=== PATIENT | male | born 1965 | race American Indian/Alaskan Native ===

== ENCOUNTER 2018-06-24 20:56 | Inpatient (IN) | payer BC, MEDICARE ==
[2018-06-24] MEDS ORDERED: ASPIRIN PO ONE (21:25)
[2018-06-24] MEDS ORDERED: REGLAN ONE (21:40)
[2018-06-24] MEDS ORDERED: REGLAN IV ONE (21:42)
[2018-06-24 21:57] LABS: Basophils # (Auto) 0.1 K/mm3 (0.0-0.1); Basophils % (Auto) 0.5 % (0.0-1.8); Eosinophils # (Auto) 0.2 K/mm3 (0.0-0.4); Eosinophils % (Auto) 1.6 % (0.0-4.3); Hematocrit 36.3 % (35.5-45.6); Hemoglobin 12.3 gm/dl (11.8-15.2); Lymphocytes # (Auto) 1.6 K/mm3 (1.2-5.4); Lymphocytes % (Auto) 14.5 % (13.4-35.0); Mean Corpuscular HGB Conc 34 % (32-34); Mean Corpuscular Volume 92 fl (84-94); Monocytes # (Auto) 0.9 K/mm3 (0.0-0.8); Monocytes % (Auto) 7.9 % (0.0-7.3); Platelet Count 169 K/mm3 (140-440); Red Blood Count 3.94 M/mm3 (3.65-5.03); Red Cell Distribution Width 14.3 % (13.2-15.2)
[2018-06-24 22:32] LABS: Alanine Aminotransferase 16 units/L (7-56); Albumin 3.9 g/dL (3.9-5); BUN/Creatinine Ratio 14; Blood Urea Nitrogen 14 mg/dL (9-20); Calcium 9.3 mg/dL (8.4-10.2); Hemolysis Index 58
[2018-06-24 23:59] LABS: Bilirubin,Urine NEG (Negative); Blood,Urine NEG (Negative); Color,Urine Amber (Yellow); Mucus,Urine 3+ /HPF
--- NOTE | 2018-06-25 01:14 | Emergency Department Report ---
ED Chest Pain HPI - General Chief Complaint: Chest Pain Stated Complaint: CHEST PAINS Time Seen by Provider: 06/25/18 01:13 Source: patient Mode of arrival: Ambulatory Limitations: No Limitations - History of Present Illness Initial Comments: Patient c/o chest pain MD Complaint: chest pain -: Sudden, days(s) (2) Onset: during rest Pain Location: substernal Pain Radiation: none Severity: moderate Severity scale (0 -10): 6 Quality: heaviness, pressure Consistency: constant Improves With: nothing Worsens With: nothing re: nausea, vomting, dyspnea Treatments Prior to Arrival: none Aspirin use within the Past 7 Days: (0) No - Related Data On Oral Contraceptives: No Home Medications Medication Instructions Recorded Confirmed Last Taken Carvedilol [Coreg] 25 mg PO DAILY 06/25/18 06/25/18 Unknown hydroCHLOROthiazide [HCTZ] 25 mg PO QDAY 06/25/18 06/25/18 Unknown Previous Rx's Medication Instructions Recorded Last Taken Type Aspirin [Aspirin BABY CHEW TAB] 81 mg PO QDAY #30 tab 12/25/14 Unknown Rx Lisinopril [Zestril TAB] 20 mg PO BID #60 tablet 12/25/14 Unknown Rx Allergies Allergy/AdvReac Type Severity Reaction Status Date / Time No Known Allergies Allergy Verified 12/08/14 17:23 Heart Score - HEART Score History: Moderately suspicious EKG: Non-specific Age: 45-65 Risk factors: 1-2 risk factors Troponin: < normal limit HEART Score: 4 - Critical Actions Critical Actions: 4-6 pts:12-16.6% risk of adverse cardiac event. Should be admitted ED Review of Systems ROS: Stated complaint: CHEST PAINS Other details as noted in HPI Comment: All other systems reviewed and negative Constitutional: denies: chills, fever Eyes: denies: eye pain, eye discharge, vision change ENT: denies: ear pain, throat pain Respiratory: shortness of breath, SOB at rest. denies: cough, wheezing Cardiovascular: chest pain. denies: palpitations Endocrine: no symptoms reported Gastrointestinal: denies: abdominal pain, nausea, diarrhea Genitourinary: denies: urgency, dysuria Musculoskeletal: denies: back pain, joint swelling, arthralgia Skin: denies: rash, lesions Neurological: denies: headache, weakness, paresthesias Psychiatric: denies: anxiety, depression Hematological/Lymphatic: denies: easy bleeding, easy bruising ED Past Medical Hx - Past Medical History Previous Medical History?: Yes Hx Hypertension: Yes Hx CVA: Yes Hx Congestive Heart Failure: No Hx Diabetes: No Hx Asthma: No Hx COPD: No Hx HIV: No Additional medical history: HIGH CHOLESTEROL - Surgical History Past Surgical History?: Yes Hx Pacemaker: No Additional Surgical History: L knee. gastric sleeve - Social History Smoking Status: Never Smoker Substance Use Type: None - Medications Home Medications: Home Medications Medication Instructions Recorded Confirmed Last Taken Type Aspirin [Aspirin BABY CHEW TAB] 81 mg PO QDAY #30 tab 12/25/14 06/25/18 Unknown Rx Lisinopril [Zestril TAB] 20 mg PO BID #60 tablet 12/25/14 06/25/18 Unknown Rx Carvedilol [Coreg] 25 mg PO DAILY 06/25/18 06/25/18 Unknown History hydroCHLOROthiazide [HCTZ] 25 mg PO QDAY 06/25/18 06/25/18 Unknown History ED Physical Exam - General Limitations: No Limitations General appearance: alert, in no apparent distress, obese - Head Head exam: Present: atraumatic, normocephalic - Eye Eye exam: Present: normal appearance, PERRL, EOMI Pupils: Present: normal accommodation - ENT ENT exam: Present: normal exam, normal orophraynx, mucous membranes moist - Neck Neck exam: Present: normal inspection, full ROM. Absent: tenderness - Respiratory Respiratory exam: Present: normal lung sounds bilaterally. Absent: respiratory distress, wheezes, rales, rhonchi - Cardiovascular Cardiovascular Exam: Present: regular rate, normal rhythm, normal heart sounds. Absent: systolic murmur, diastolic murmur, rubs, gallop - GI/Abdominal GI/Abdominal exam: Present: soft, tenderness, normal bowel sounds. Absent: distended, guarding, rebound, rigid - Rectal Rectal exam: Present: deferred - Extremities Exam Extremities exam: Present: normal inspection, full ROM, normal capillary refill - Back Exam Back exam: Present: normal inspection, full ROM - Neurological Exam Neurological exam: Present: alert, oriented X3, CN II-XII intact - Psychiatric Psychiatric exam: Present: normal affect, normal mood - Skin Skin exam: Present: warm, dry, intact, normal color. Absent: rash ED Course Vital Signs 06/24/18 06/25/18 06/25/18 21:08 01:20 02:00 Temperature 99.6 F 98.5 F Pulse Rate 99 H 94 H 88 Respiratory 18 13 16 Rate Blood Pressure 153/89 137/68 Blood Pressure 149/85 [Left] O2 Sat by Pulse 95 98 Oximetry 06/25/18 06/25/18 03:00 04:00 Temperature Pulse Rate 87 84 Respiratory 17 14 Rate Blood Pressure 128/75 128/75 Blood Pressure [Left] O2 Sat by Pulse 100 Oximetry - Consultations Consultation #1: 06/25/18 05:[address] Lei Gonzalez who did a gastric sleeve surgery on the patient on 05/31/2018. He recommend starting patient on Heparin drip (PE protocol) even though patient has surgery on 05/31/2018. I will go ahead and start patient on Heparin drip per Dr Lei Gonzalez recommendation. Consultation #2: 06/25/18 05:06 Dr Garber to admit patient. HOLLY score - Holly Score Age > 65: (0) No Aspirin use within the Past 7 Days: (0) No 3 or more CAD Risk Factors: (1) Yes 2 or more Angina events in past 24 hrs: (0) No Known CAD with more than 50% Stenosis: (0) No Elevated Cardiac Markers: (0) No ST Deviation Greater than 0.5mm: (0) No HOLLY Score: 1 ED Medical Decision Making - Lab Data Result diagrams: 06/24/18 21:29 06/24/18 21:29 Lab Results 06/24/18 06/24/18 06/24/18 Range/Units 21:29 21:29 21:29 WBC 10.8 (4.5-11.0) K/mm3 RBC 3.94 (3.65-5.03) M/mm3 Hgb 12.3 (11.8-15.2) gm/dl Hct 36.3 (35.5-45.6) % MCV 92 (84-94) fl MCH 31 (28-32) pg MCHC 34 (32-34) % RDW 14.3 (13.2-15.2) % Plt Count 169 (140-440) K/mm3 Lymph % (Auto) 14.5 (13.4-35.0) % [place] % (Auto) 7.9 H (0.0-7.3) % Eos % (Auto) 1.6 (0.0-4.3) % Baso % (Auto) 0.5 (0.0-1.8) % Lymph # 1.6 (1.2-5.4) K/mm3 [place] # 0.9 H (0.0-0.8) K/mm3 Eos # 0.2 (0.0-0.4) K/mm3 Baso # 0.1 (0.0-0.1) K/mm3 Seg Neutrophils % 75.5 H (40.0-70.0) % Seg Neutrophils # 8.1 H (1.8-7.7) K/mm3 PT (12.2-14.9) Sec. INR (0.87-1.13) APTT (24.2-36.6) Sec. Sodium 150 H (137-145) mmol/L Potassium 3.9 (3.6-5.0) mmol/L Chloride 108.5 H (98-107) mmol/L Carbon Dioxide 24 (22-30) mmol/L Anion Gap 21 mmol/L BUN 14 (9-20) mg/dL Creatinine 1.0 (0.8-1.5) mg/dL Estimated GFR > 60 ml/min BUN/Creatinine Ratio 14 % Glucose 111 H (75-100) mg/dL Calcium 9.3 (8.4-10.2) mg/dL Total Bilirubin 0.70 (0.1-1.2) mg/dL AST 25 (5-40) units/L ALT 16 (7-56) units/L Alkaline Phosphatase 78 (35-129) units/L Troponin T < 0.010 (0.00-0.029) ng/mL Total Protein 8.2 (6.3-8.2) g/dL Albumin 3.9 (3.9-5) g/dL Albumin/Globulin Ratio 0.9 % Lipase 56 (13-60) units/L Urine Color (Yellow) Urine Turbidity (Clear) Urine pH (5.0-7.0) Ur Specific [place] (1.003-1.030) Urine Protein (Negative) mg/dL Urine Glucose (UA) (Negative) mg/dL Urine Ketones (Negative) mg/dL Urine Blood (Negative) Urine Nitrite (Negative) Urine Bilirubin (Negative) Urine Urobilinogen (<2.0) mg/dL Ur Leukocyte Esterase (Negative) Urine WBC (Auto) (0.0-6.0) /HPF Urine RBC (Auto) (0.0-6.0) /HPF U Epithel Cells (Auto) (0-13.0) /HPF Urine Mucus /HPF 06/24/18 06/25/18 06/25/18 Range/Units 23:36 00:35 02:10 WBC (4.5-11.0) K/mm3 RBC (3.65-5.03) M/mm3 Hgb (11.8-15.2) gm/dl Hct (35.5-45.6) % MCV (84-94) fl MCH (28-32) pg MCHC (32-34) % RDW (13.2-15.2) % Plt Count (140-440) K/mm3 Lymph % (Auto) (13.4-35.0) % [place] % (Auto) (0.0-7.3) % Eos % (Auto) (0.0-4.3) % Baso % (Auto) (0.0-1.8) % Lymph # (1.2-5.4) K/mm3 [place] # (0.0-0.8) K/mm3 Eos # (0.0-0.4) K/mm3 Baso # (0.0-0.1) K/mm3 Seg Neutrophils % (40.0-70.0) % Seg Neutrophils # (1.8-7.7) K/mm3 PT 15.7 H (12.2-14.9) Sec. INR 1.21 H (0.87-1.13) APTT 27.6 (24.2-36.6) Sec. Sodium (137-145) mmol/L Potassium (3.6-5.0) mmol/L Chloride (98-107) mmol/L Carbon Dioxide (22-30) mmol/L Anion Gap mmol/L BUN (9-20) mg/dL Creatinine (0.8-1.5) mg/dL Estimated GFR ml/min BUN/Creatinine Ratio % Glucose (75-100) mg/dL Calcium (8.4-10.2) mg/dL Total Bilirubin (0.1-1.2) mg/dL AST (5-40) units/L ALT (7-56) units/L Alkaline Phosphatase (35-129) units/L Troponin T < 0.010 (0.00-0.029) ng/mL Total Protein (6.3-8.2) g/dL Albumin (3.9-5) g/dL Albumin/Globulin Ratio % Lipase (13-60) units/L Urine Color [place] (Yellow) Urine Turbidity Slightly-cloudy (Clear) Urine pH 5.0 (5.0-7.0) Ur Specific [place] 1.030 (1.003-1.030) Urine Protein 100 mg/dl (Negative) mg/dL Urine Glucose (UA) Neg (Negative) mg/dL Urine Ketones 80 (Negative) mg/dL Urine Blood Neg (Negative) Urine Nitrite Neg (Negative) Urine Bilirubin Neg (Negative) Urine Urobilinogen 2.0 (<2.0) mg/dL Ur Leukocyte Esterase Sm (Negative) Urine WBC (Auto) 23.0 H (0.0-6.0) /HPF Urine RBC (Auto) 4.0 (0.0-6.0) /HPF U Epithel Cells (Auto) 3.0 (0-13.0) /HPF Urine Mucus 3+ /HPF - EKG Data -: EKG Interpreted by Id EKG shows normal: sinus rhythm Rate: normal (84) - EKG Data When compared to previous EKG there are: previous EKG unavailable Interpretation: nonspecific ST-T wave [facility] 06/25/18 02:48 Prolonged QT, No STEMI. - Radiology Data Radiology results: report reviewed, image reviewed CTA chest showed extensive bilateral pulmonary embolism. - Medical Decision Making Bilateral Pulmonary embolism. S/P Gastric Sleeve Surgery. Intractable Nausea and Vomiting. Critical Care Time: Yes Critical care time in (mins) excluding proc time.: 65 Critical care attestation.: If time is entered above; I have spent that time in minutes in the direct care of this critically ill patient, excluding procedure time. ED Disposition Clinical Impression: Shortness of breath, Morbid obesity Pulmonary embolism Qualifiers: Pulmonary embolism type: unspecified Chronicity: acute Acute cor pulmonale presence: without acute cor pulmonale Qualified Code(s): I26.99 - Other pulmonary embolism without acute cor pulmonale Chest pain Qualifiers: Chest pain type: unspecified Qualified Code(s): R07.9 - Chest pain, unspecified Nausea and vomiting Qualifiers: Vomiting type: unspecified Vomiting Intractability: intractable Qualified Code(s): R11.2 - Nausea with vomiting, unspecified Abdominal pain Qualifiers: Abdominal location: generalized Qualified Code(s): R10.84 - Generalized abdomin al pain Intractable nausea and vomiting Qualifiers: Vomiting type: unspecified Qualified Code(s): R11.2 - Nausea with vomiting, unspecified Disposition: DC-09 OP ADMIT IP TO THIS HOSP Is pt being admited?: Yes Does the pt Need Aspirin: Yes Condition: Stable Time of Disposition: 04:36
[2018-06-25] MEDS ORDERED: ZOFRAN IV ONE (01:54)
[2018-06-25] MEDS ORDERED: MORPHINE IV ONE (01:54)
[2018-06-25] MEDS ORDERED: ASPIRIN ONE (02:03)
[2018-06-25 02:33] LABS: INR 1.21 (0.87-1.13); Partial Thromboplastin Time 27.6 Sec. (24.2-36.6)
--- NOTE | 2018-06-25 04:02 | Cat Scan Report ---
FINAL REPORT EXAM: CT ANGIO CHEST HISTORY: chest pain TECHNIQUE: A CT angiogram was performed following the intravenous injection of 100 cc of Omnipaque 3 50. Rotational, sagittal and coronal MIP reconstructions were reviewed. FINDINGS: There are extensive partially occlusive emboli within the primary and secondary arterial branches of both lungs. There is no evidence of right heart strain or pulmonary infarct. The lungs otherwise are clear. Pleural fluid is not seen. The heart size is normal. Pericardial fluid is not seen. The thorac ic aorta is normal in caliber. Adenopathy is not identified. There is a small hiatal hernia at the GE junction. There is been gastric sleeve surgery in the upper abdomen. The adrenal glands appear tia l. The skeletal structures reveal multilevel disc degeneration in the dorsal spine. At the thoracic i nlet the thyroid gland appears normal. IMPRESSION: Extensive bilateral partially occlusive emboli involving the primary and secondary arterial branches of both lungs. No evidence of right heart strain, vascular congestion, or pulmonary infarct. Small hiatal hernia. Status post gastric sleeve surgery in the upper abdomen. The pulmonary emboli findings were discussed with Dr. Randolph at 4:01 a.m. on 06/25/2018.
[2018-06-25] MEDS ORDERED: NACL 0.9% 1000 ML 1,000 ML IV ONE ×2 (04:05→05:07)
[2018-06-25] MEDS ORDERED: HEPARIN 10,000 UNITS/10 ML IV ONE (04:32)
--- NOTE | 2018-06-25 04:34 | Cat Scan Report ---
FINAL REPORT EXAM: CT ANGIO ABDOMEN PELVIS HISTORY: chest pain TECHNIQUE: CT images are acquired through the Abdomen and Pelvis in angiographic phase following int ravenous administration of contrast. Transaxial, coronal and sagittal reformations with maximal inten sity projection are provided. PRIORS: CT chest angiogram of the same date FINDINGS: Partially visualized intrathoracic contents are remarkable for pulmonary emboli, which are seen to be tter advantage on CT chest angiogram of the same date. The liver, gallbladder, pancreas, spleen, and adrenal glands are unremarkable. Kidneys show no worrisome lesions, hydronephrosis, or calculi. Urinary bladder is unremarkable. Patient status post sleeve gastrectomy. Small and large bowel are normal in caliber. Appendix is norm al. No free air, free fluid, or lymphadenopathy identified. Aorta is normal in course and caliber. No aortic wall irregularity or periaortic stranding or edema. Superficial soft tissues are without acute finding. No acute or aggressive appearing skeletal finding s. IMPRESSION: No acute findings in the abdomen or pelvis.
[2018-06-25] MEDS ORDERED: HEPARIN/ 0.45% NACL-25,000 UNIT/500 ML 25,000 UNIT/500 ML BAG ONE (05:05)
[2018-06-25] MEDS ORDERED: HEPARIN 10,000 UNITS/10 ML ONE (05:05)
[2018-06-25] MEDS: HEPARIN/ 0.45% NACL-25,000 UNIT/500 ML 25,000 UNIT/500 ML BAG IV SCH ×2 (05:12→22:37)
[2018-06-25 05:51] LABS: Hematocrit 35.7 % (35.5-45.6); Hemoglobin 11.5 gm/dl (11.8-15.2)
[2018-06-25 06:02] LABS: INR 1.42 (0.87-1.13)
[2018-06-25] MEDS ORDERED: MORPHINE IV PRN (06:04)
[2018-06-25] MEDS ORDERED: TYLENOL PO PRN (06:05)
[2018-06-25 06:15] LABS: Partial Thromboplastin Time 143.8 Sec. (24.2-36.6)
--- NOTE | 2018-06-25 08:03 | History and Physical Report ---
CHIEF COMPLAINT: Chest pain. OTHER COMPLAINT: Includes shortness of breath. HISTORY OF PRESENTING ILLNESS: The patient is a 53-year-old male who had gastric bypass surgery done on 05/31/2018 and started having chest pain with difficulty in breathing, was going on for few days and the patient denies history of nausea or vomiting and has been having dysphagia with shortness of breath. There is no history of fever and no history of cough. The patient presented for evaluation. PAST MEDICAL HISTORY: Pertinent for hypertension, cerebrovascular accident, hypercholesterolemia. PAST SURGICAL HISTORY: Pertinent for left knee surgery and recent gastric bypass surgery involving gastric sleeve surgery. FAMILY HISTORY: Noncontributory. SOCIAL HISTORY: The patient does not smoke, does not drink alcohol, and does not use illicit drugs. MEDICATIONS: The patient is on aspirin 81 mg daily, lisinopril 20 mg by mouth twice daily, Coreg 25 mg by mouth daily, Thiazide 25 mg by mouth daily. ALLERGIES: There are no known drug allergies. REVIEW OF SYSTEMS: CONSTITUTIONAL: There is no fever, no chills, no diaphoresis. HEENT: There is no headache or sore throat. CARDIOVASCULAR SYSTEM: He has chest pain, but no orthopnea. RESPIRATORY SYSTEM: There is shortness of breath, but no cough. GASTROINTESTINAL SYSTEM: There is no abdominal pain, no diarrhea or constipation. NEUROLOGICAL SYSTEM: There is no numbness, no dizziness, and no altered mental status. MUSCULOSKELETAL SYSTEM: There is no joint pain or swelling. DERMATOLOGICAL SYSTEM: There is no skin rash or itching. GENITOURINARY SYSTEM: There is no dysuria, hematuria, or flank pain. Rest of system review is normal. PHYSICAL EXAMINATION: GENERAL: At the time of exam, the patient was found to be alert, oriented x 3, and not in acute distress. VITAL SIGNS: At the initial time of presentation show temperature of 99.6 degrees Fahrenheit, pulse of 99, respirations 18, blood pressure 158/89, O2 sat of 95% on room air. HEENT: Shows pupils to be equal, round, reactive to light and accommodation. Extraocular muscles are intact. NECK: Supple with no JVD or carotid bruit. CARDIOVASCULAR SYSTEM: Shows normal first and second heart sounds with no gallops or murmurs. RESPIRATORY SYSTEM: Shows good air entry on both sides of the lung with no abnormal breath sounds. GASTROINTESTINAL SYSTEM: Shows abdomen to be full, soft, nontender with no organomegaly or rigidity. NEUROLOGICAL SYSTEM Shows no focal deficit. MUSCULOSKELETAL SYSTEM: Shows no joint swelling or tenderness. DERMATOLOGICAL SYSTEM: Shows no skin rash. GENITOURINARY SYSTEM: Showing no costovertebral angle tenderness. PERTINENT LABORATORY DATA: The patient had CBC done with normal white count, normal hemoglobin, and normal hematocrit with CBC differential showing elevated monocyte count of 7.9% and elevated segmented neutrophil count of 75.5%. The patient's coagulation studies were unremarkable with high INR of 1.2 with slightly elevated PT of 15.7. The patient's chemistry showed elevated sodium level of 150 with elevated chloride level of 108.5 and normal potassium level. The patient's magnesium level was high with a value of 2.4. Urinalysis shows small urine leukocyte esterase with elevated urine WBCs of 23. IMAGING STUDIES: The patient had CT angiogram of the abdomen done that was unremarkable, but his CT angiogram of the chest shows extensive bilateral partially occlusive emboli involving the primary and secondary arterial branches of both lungs. DIAGNOSES: 1. Bilateral pulmonary embolism. 2. Urinary tract infection. PLAN OF ACTION: 1. The patient will be admitted to [facility]. 2. The patient will continue IV heparin, which was okayed by the surgeon, Dr. Gonzalez, who did the gastric sleeve surgery. 3. The patient will be on Coumadin 5 mg by mouth daily, to be dosed by pharmacy. 4. The patient will have PT/INR done on 06/26/2018. 5. The patient will be on IV morphine 2 mg every 4 hours as needed for pain and the patient will be on IV Zofran 4 mg every 8 hours for nausea and vomiting. 6. The patient will be on Tylenol 650 mg by mouth every 4 hours as needed for fever and headache. 7. The patient will be on his home medication as shown in the medication reconciliation section. 8. The patient will be on oxygen by nasal cannula at 4 liters per minute. 9. The patient's diet will be 2 g sodium diet. JOB# [id number] OCN/NTS
[2018-06-25] MEDS: ROCEPHIN/NS 1 GM/50 ML 1 GM/50 ML BAG IV SCH (09:23)
[2018-06-25] MEDS: ZESTRIL PO SCH ×3 (09:23→22:36)
[2018-06-25] MEDS: HCTZ PO SCH ×2 (09:24→12:36)
[2018-06-25] MEDS: COREG PO SCH ×2 (09:24→12:35)
[2018-06-25] MEDS ORDERED: MYLICON PO PRN (10:36)
[2018-06-25] MEDS ORDERED: APRESOLINE IV PRN (10:36)
[2018-06-25 12:33] LABS: Creatine Kinase MB 1.8 ng/mL (0.0-4.0)
[2018-06-25] MEDS: LACTATED RINGERS 1,000 ML IV SCH ×2 (12:37→22:35)
[2018-06-25] MEDS: COUMADIN PO SCH ×2 (17:59→18:00)
--- NOTE | 2018-06-25 18:43 | Progress Note ---
History Interval history: Patient was seen and evaluated this morning. Patient admitted earlier this morning for the management of bilateral PE. Labs, imaging and H&P reviewed. Continue management per H&P. Hospitalist Physical - Constitutional Vitals: Temp Pulse Resp BP Pulse Ox 98.3 F 72 15 143/76 100 06/25/18 12:00 06/25/18 11:00 06/25/18 11:00 06/25/18 11:00 06/25/18 11:00 Results - Labs CBC & Chem 7: 06/25/18 05:33 06/24/18 21:29 Labs: Laboratory Last Values WBC 10.8 K/mm3 (4.5-11.0) 06/24/18 21: RBC 3.94 M/mm3 (3.65-5.03) 06/24/18 21: Hgb 11.5 gm/dl (11.8-15.2) L 06/25/18 05:33 Hct 35.7 % (35.5-45.6) 06/25/18 05:33 MCV 92 fl (84-94) 06/24/18 21: MCH 31 pg (28-32) 06/24/18 21: MCHC 34 % (32-34) 06/24/18 21: RDW 14.3 % (13.2-15.2) 06/24/18 21: Plt Count 148 K/mm3 (140-440) 06/25/18 05:33 Lymph % (Auto) 14.5 % (13.4-35.0) 06/24/18 21: [place] % (Auto) 7.9 % (0.0-7.3) H 06/24/18 21: Eos % (Auto) 1.6 % (0.0-4.3) 06/24/18 21: Baso % (Auto) 0.5 % (0.0-1.8) 06/24/18: Lymph # 1.6 K/mm3 (1.2-5.4) 06/24/18 21: [place] # 0.9 K/mm3 (0.0-0.8) H 06/24/18 21: Eos # 0.2 K/mm3 (0.0-0.4) 06/24/18 21:29 Baso # 0.1 K/mm3 (0.0-0.1) 06/24/18 21:29 Seg Neutrophils % 75.5 % (40.0-70.0) H 06/24/18 21:29 Seg Neutrophils # 8.1 K/mm3 (1.8-7.7) H 06/24/18 21:29 PT 17.8 Sec. (12.2-14.9) H 06/25/18 05:33 INR 1.42 (0.87-1.13) H 06/25/18 05:33 APTT 143.8 Sec. (24.2-36.6) H* 06/25/18 05:33 Heparin Anti-Xa Level 0.81 U.I./ml (0.3-0.7) H 06/25/18 11:25 Sodium 150 mmol/L (137-145) H 06/24/18 21:29 Potassium 3.9 mmol/L (3.6-5.0) 06/24/18 21:29 Chloride 108.5 mmol/L (98-107) H 06/24/18 21:29 Carbon Dioxide 24 mmol/L (22-30) 06/24/18 21:29 Anion Gap 21 mmol/L 06/24/18 21:29 BUN 14 mg/dL (9-20) 06/24/18 21:29 Creatinine 1.0 mg/dL (0.8-1.5) 06/24/18 21:29 Estimated GFR > 60 ml/min 06/24/18 21:29 BUN/Creatinine Ratio 14 % 06/24/18 21:29 Glucose 111 mg/dL (75-100) H 06/24/18 21:29 Calcium 9.3 mg/dL (8.4-10.2) 06/24/18 21:29 Magnesium 2.40 mg/dL (1.7-2.3) H 06/25/18 03:58 Total Bilirubin 0.70 mg/dL (0.1-1.2) 06/24/18 21:29 AST 25 units/L (5-40) 06/24/18 21:29 ALT 16 units/L (7-56) 06/24/18 21:29 Alkaline Phosphatase 78 units/L (35-129) 06/24/18 21:29 Total Creatine Kinase 249 units/L (55-170) H 06/25/18 11:25 CK-MB (CK-2) 1.8 ng/mL (0.0-4.0) 06/25/18 11:25 CK-MB (CK-2) Rel Index 0.7 (0-4) 06/25/18 11:25 Troponin T < 0.010 ng/mL (0.00-0.029) 06/25/18 11:25 NT-Pro-B Natriuret Pep 22.34 pg/mL (0-900) 06/25/18 02:10 Total Protein 8.2 g/dL (6.3-8.2) 06/24/18 21:29 Albumin 3.9 g/dL (3.9-5) 06/24/18 21:29 Albumin/Globulin Ratio 0.9 % 06/24/18 21:29 Lipase 56 units/L (13-60) 06/24/18 21:29 Urine Color [place] (Yellow) 06/24/18 23:36 Urine Turbidity Slightly-cloudy (Clear) 06/24/18 23:36 Urine pH 5.0 (5.0-7.0) 06/24/18 23:36 Ur Specific [place] 1.030 (1.003-1.030) 06/24/18 23:36 Urine Protein 100 mg/dl mg/dL (Negative) 06/24/18 23:36 Urine Glucose (UA) Neg mg/dL (Negative) 06/24/18 23:36 Urine Ketones 80 mg/dL (Negative) 06/24/18 23:36 Urine Blood Neg (Negative) 06/24/18 23:36 Urine Nitrite Neg (Negative) 06/24/18 23:36 Urine Bilirubin Neg (Negative) 06/24/18 23:36 Urine Urobilinogen 2.0 mg/dL (<2.0) 06/24/18 23:36 Ur Leukocyte Esterase Sm (Negative) 06/24/18 23:36 Urine WBC (Auto) 23.0 /HPF (0.0-6.0) H 06/24/18 23:36 Urine RBC (Auto) 4.0 /HPF (0.0-6.0) 06/24/18 23:36 U Epithel Cells (Auto) 3.0 /HPF (0-13.0) 06/24/18 23:36 Urine Mucus 3+ /HPF 06/24/18 23:36 Nutrition/Malnutrition Assess - Dietary Evaluation Nutrition/Malnutrition Findings: Nutrition Notes Start: 06/25/18 13:57 Freq: Status: Active Protocol: Document 06/25/18 13:57 RM (Rec: 06/25/18 14:01 RM [id number]) Nutrition Notes Need for Assessment generated from: Education Initial or Follow up Assessment Current Diagnosis Hypertension Stroke Other Pertinent Diagnosis UTI, Bilat PE Subjective/Other Information Pt screened for Coumadin/Vit K diet education. Reviewed Coumadin/Vit K diet education. Gave handout. #1 Nutrition Diagnosis Food and nutrition-related knowledge deficit Etiology lack of prior education As Evidenced by Signs and Symptoms no prior knowledge of need for food and nutrition recommendations Nutrition Intervention Teaching Recipient Patient Learning Readiness Good Teaching Methods Discussion Handout Response to Teaching Verbalize understanding Education Handouts Provided Vitamin K and Medications Barriers to Learning No Barriers RD phone number provided Yes Patient aware of follow up options Yes Goal #1 Adhere to diet Revisit per MD consult or patient Sign Off request:
[2018-06-25 22:29] LABS: Creatine Kinase MB 1.6 ng/mL (0.0-4.0)
--- NOTE | 2018-06-26 08:29 | Progress Note ---
Assessment and Plan S/P Sleeve gastrectomy 3 weeks ago, now with nausea, vomiting and pulmonary emboli. Will start IVF'S, reglan and CT scan with oral contrast to r/o sleeve obstruction. Hospitalist to handle P.E. protocol. Subjective Date of service: 06/25/18 Patient Reports: Positive: nausea Narrative: Awake ,alert and in no pain. Reports nausea and difficulty swallowing but no chest pain, or shortness of breath. He reports that he just can keep certain things down. He's ok with water, but other fluids he brings back up. Objective Vital Signs - 12hr 06/25/18 06/25/18 21:05 22:36 Pulse Rate 80 Blood Pressure 122/60 O2 Sat by Pulse 100 Oximetry - General physical appearance well developed, well nourished, no distress, no pain - Eyes PERRL, normal occular movement - ENT normal pinna, normal mucosa, no hearing loss, no congestion - Neck no masses, trachea midline, no lymphadectomy - Respiratory normal expansion, normal respiratory effort - Abdomen soft, bowel sounds normal Hernia: none - Integumentary no rash, no growths - Neurologic normal coordination, normal sensation - Musculoskeletal normal gait, normal posture - Psychiatric oriented to time, oriented to person, oriented to place, speech is normal, memory intact - Labs 06/25/18 05:33 06/24/18 21:29 - Imaging CT scan - abdomen: pending CT scan - chest: other (CT of chest shows pulmonary embolism and pt started on heparin protocol.) CT scan - pelvis: pending
[2018-06-26 08:33] LABS: Basophils # (Auto) 0.1 K/mm3 (0.0-0.1); Basophils % (Auto) 0.7 % (0.0-1.8); Eosinophils # (Auto) 0.3 K/mm3 (0.0-0.4); Hematocrit 34.9 % (35.5-45.6); Hemoglobin 11.4 gm/dl (11.8-15.2); Lymphocytes # (Auto) 1.3 K/mm3 (1.2-5.4); Lymphocytes % (Auto) 17.1 % (13.4-35.0); Mean Corpuscular HGB Conc 33 % (32-34); Mean Corpuscular Volume 93 fl (84-94); Monocytes # (Auto) 0.7 K/mm3 (0.0-0.8); Platelet Count 152 K/mm3 (140-440); Red Blood Count 3.78 M/mm3 (3.65-5.03); Red Cell Distribution Width 14.1 % (13.2-15.2)
[2018-06-26 08:34] LABS: INR 1.2 (0.87-1.13)
[2018-06-26 09:33] LABS: BUN/Creatinine Ratio 11; Blood Urea Nitrogen 11 mg/dL (9-20); Calcium 8.9 mg/dL (8.4-10.2); Hemolysis Index 4
[2018-06-26 10:22] LABS: Basophils % (Auto) 0.5 % (0.0-1.8); Eosinophils # (Auto) 0.3 K/mm3 (0.0-0.4); Eosinophils % (Auto) 3.9 % (0.0-4.3); Hematocrit 34.1 % (35.5-45.6); Lymphocytes # (Auto) 1.3 K/mm3 (1.2-5.4); Lymphocytes % (Auto) 18.3 % (13.4-35.0); Mean Corpuscular HGB Conc 32 % (32-34); Mean Corpuscular Volume 93 fl (84-94); Monocytes # (Auto) 0.7 K/mm3 (0.0-0.8); Monocytes % (Auto) 9.4 % (0.0-7.3); Platelet Count 156 K/mm3 (140-440); Red Blood Count 3.68 M/mm3 (3.65-5.03); Red Cell Distribution Width 13.9 % (13.2-15.2)
[2018-06-26] MEDS: ROCEPHIN/NS 1 GM/50 ML 1 GM/50 ML BAG IV SCH (10:30)
[2018-06-26] MEDS: ZESTRIL PO SCH ×2 (10:32→23:37)
[2018-06-26] MEDS: HCTZ PO SCH (10:32)
[2018-06-26] MEDS: COREG PO SCH (10:32)
[2018-06-26] MEDS: LACTATED RINGERS 1,000 ML IV SCH (10:35)
[2018-06-26 11:56] LABS: Alanine Aminotransferase 14 units/L (7-56); Albumin 3.1 g/dL (3.9-5); BUN/Creatinine Ratio 12; Blood Urea Nitrogen 11 mg/dL (9-20); Calcium 8.7 mg/dL (8.4-10.2); Hemolysis Index 35
--- NOTE | 2018-06-26 13:14 | Progress Note ---
Assessment and Plan Will review abdominal CT with contrast to see if there is any abnormality of the stomach. If this is normal, we will have to continue to advance his diet slowly. If this is abnormal or if he is unable to complete the study, a upper endoscopy may be required to try and define the anatomy and the problem. Subjective Date of service: 06/26/18 Patient Reports: Positive: no new complaints, feels better, bowel movement, afebrile Narrative: Patient reports that he is able to take down water, but everything else makes him nauseated and he regurgitates. He is currently trying to take in the gastrographin for the CT scan as the prior study was without p.o. contrast. He says it is going down but very slowly. Objective Vital Signs - 12hr 06/26/18 06/26/18 06/26/18 03:51 04:01 04:11 Temperature Pulse Rate 76 80 78 Respiratory 15 11 L 12 Rate Blood Pressure 114/55 144/71 144/71 O2 Sat by Pulse 96 96 98 Oximetry 06/26/18 06/26/18 06/26/18 04:21 05:23 05:31 Temperature Pulse Rate 82 103 H 83 Respiratory 12 22 13 Rate Blood Pressure 144/71 144/71 139/68 O2 Sat by Pulse 97 98 97 Oximetry 06/26/18 06/26/18 06/26/18 05:41 05:51 06:00 Temperature Pulse Rate 82 79 81 Respiratory 13 15 12 Rate Blood Pressure 144/71 139/68 129/68 O2 Sat by Pulse 96 96 95 Oximetry 06/26/18 06/26/18 06/26/18 06:11 06:21 06:31 Temperature Pulse Rate 80 75 74 Respiratory 15 12 11 L Rate Blood Pressure 129/68 129/68 129/68 O2 Sat by Pulse 98 99 99 Oximetry 06/26/18 06/26/18 06/26/18 06:41 06:51 07:00 Temperature Pulse Rate 69 68 80 Respiratory 11 L 11 L 12 Rate Blood Pressure 129/68 129/68 132/57 O2 Sat by Pulse 100 100 100 Oximetry 06/26/18 06/26/18 06/26/18 07:11 07:21 07:31 Temperature Pulse Rate 68 79 83 Respiratory 11 L 12 16 Rate Blood Pressure 132/57 132/57 132/57 O2 Sat by Pulse 100 100 100 Oximetry 06/26/18 06/26/18 06/26/18 07:40 07:50 08:00 Temperature Pulse Rate 75 85 81 Respiratory 12 15 15 Rate Blood Pressure 132/57 132/57 140/65 O2 Sat by Pulse 100 99 96 Oximetry 06/26/18 06/26/18 06/26/18 08:11 08:21 08:31 Temperature Pulse Rate 76 82 91 H Respiratory 14 14 13 Rate Blood Pressure 140/65 140/65 140/65 O2 Sat by Pulse 99 99 Oximetry 06/26/18 06/26/18 06/26/18 08:41 08:51 08:59 Temperature 97.5 F L Pulse Rate 86 83 Respiratory 23 18 Rate Blood Pressure 140/65 140/65 O2 Sat by Pulse 97 Oximetry 06/26/18 06/26/18 06/26/18 09:00 09:11 09:21 Temperature Pulse Rate 82 83 81 Respiratory 15 16 12 Rate Blood Pressure 144/72 144/72 140/65 O2 Sat by Pulse 94 98 Oximetry 06/26/18 06/26/18 06/26/18 09:31 09:41 09:51 Temperature Pulse Rate 77 76 84 Respiratory 14 13 15 Rate Blood Pressure 140/65 140/65 144/72 O2 Sat by Pulse 97 96 100 Oximetry 06/26/18 06/26/18 06/26/18 10:00 10:11 10:21 Temperature Pulse Rate 81 88 80 Respiratory 14 16 17 Rate Blood Pressure 148/63 148/63 148/63 O2 Sat by Pulse 100 99 100 Oximetry 06/26/18 06/26/18 06/26/18 10:31 10:41 10:51 Temperature Pulse Rate 79 79 79 Respiratory 17 15 16 Rate Blood Pressure 148/63 148/63 148/63 O2 Sat by Pulse 99 98 Oximetry 06/26/18 06/26/18 06/26/18 11:00 11:11 11:21 Temperature Pulse Rate 76 74 75 Respiratory 16 16 15 Rate Blood Pressure 162/87 162/87 162/87 O2 Sat by Pulse 96 99 99 Oximetry 06/26/18 06/26/18 06/26/18 11:31 11:41 11:51 Temperature Pulse Rate 76 78 75 Respiratory 17 15 14 Rate Blood Pressure 162/87 162/87 162/87 O2 Sat by Pulse 100 100 99 Oximetry 06/26/18 06/26/18 06/26/18 12:01 12:11 12:21 Temperature Pulse Rate 75 81 75 Respiratory 18 16 13 Rate Blood Pressure 158/94 158/94 158/94 O2 Sat by Pulse 98 98 Oximetry 06/26/18 06/26/18 06/26/18 12:31 12:41 12:51 Temperature Pulse Rate 71 82 70 Respiratory 18 12 16 Rate Blood Pressure 158/94 158/94 158/94 O2 Sat by Pulse 97 97 97 Oximetry - General physical appearance no distress, no pain - Respiratory normal expansion, normal respiratory effort - Abdomen soft, bowel sounds normal - Labs 06/26/18 09:57 06/26/18 09:57 Diabetes panel 06/26/18 06/26/18 Range/Units 07:46 09:57 Sodium 149 H 150 H (137-145) mmol/L Potassium 3.6 3.5 L (3.6-5.0) mmol/L Chloride 108.8 H 109.7 H (98-107) mmol/L Carbon Dioxide 27 23 (22-30) mmol/L BUN 11 11 (9-20) mg/dL Creatinine 1.0 0.9 (0.8-1.5) mg/dL Glucose 92 91 (75-100) mg/dL Calcium 8.9 8.7 (8.4-10.2) mg/dL AST 21 (5-40) units/L ALT 14 (7-56) units/L Alkaline Phosphatase 66 (35-129) units/L Total Protein 7.0 (6.3-8.2) g/dL Albumin 3.1 L (3.9-5) g/dL Calcium panel 06/26/18 06/26/18 Range/Units 07:46 09:57 Calcium 8.9 8.7 (8.4-10.2) mg/dL Albumin 3.1 L (3.9-5) g/dL Pituitary panel 06/26/18 06/26/18 Range/Units 07:46 09:57 Sodium 149 H 150 H (137-145) mmol/L Potassium 3.6 3.5 L (3.6-5.0) mmol/L Chloride 108.8 H 109.7 H (98-107) mmol/L Carbon Dioxide 27 23 (22-30) mmol/L BUN 11 11 (9-20) mg/dL Creatinine 1.0 0.9 (0.8-1.5) mg/dL Glucose 92 91 (75-100) mg/dL Calcium 8.9 8.7 (8.4-10.2) mg/dL Adrenal panel 06/26/18 06/26/18 Range/Units 07:46 09:57 Sodium 149 H 150 H (137-145) mmol/L Potassium 3.6 3.5 L (3.6-5.0) mmol/L Chloride 108.8 H 109.7 H (98-107) mmol/L Carbon Dioxide 27 23 (22-30) mmol/L BUN 11 11 (9-20) mg/dL Creatinine 1.0 0.9 (0.8-1.5) mg/dL Glucose 92 91 (75-100) mg/dL Calcium 8.9 8.7 (8.4-10.2) mg/dL Total Bilirubin 0.60 (0.1-1.2) mg/dL AST 21 (5-40) units/L ALT 14 (7-56) units/L Alkaline Phosphatase 66 (35-129) units/L Total Protein 7.0 (6.3-8.2) g/dL Albumin 3.1 L (3.9-5) g/dL - Imaging CT scan - abdomen: image reviewed CT scan - chest: image reviewed
[2018-06-26] MEDS: COUMADIN PO SCH (17:37)
--- NOTE | 2018-06-26 18:38 | Progress Note ---
Assessment and Plan Assessment and plan: 53-year-old male with medical history significant for status post gastric sleeve surgery was admitted yesterday as a management of bilateral PE after he was presented for shortness of breath. Bilateral PE - CTA is positive for PE - Patient is on heparin drip, will transition to by mouth ginny has a total discharge Status post gastric sleeve surgery - Evaluated by bariatric surgery Disposition - Pending clearance from bariatric surgery or discharge History Interval history: Patient was seen and evaluated this morning. Patient didn't have any complaints Hospitalist Physical - Physical exam Narrative exam: Not in cardiopulmonary distress. The patient is obese. Vital signs as documented. Head exam is unremarkable. No scleral icterus . Neck is without jugular venous distension, thyromegaly, or carotid bruits. Lungs are clear to auscultation. Cardiac exam reveals regular rate and Rhythm. First and second heart sounds normal. No murmurs, rubs or gallops. Abdominal exam reveals normal bowel sounds, no masses, no organomegaly and no aortic enlargement. Extremities are nonedematous and both femoral and pedal pulses are normal. 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 No focal weakness. - Constitutional Vitals: Temp Pulse Resp BP Pulse Ox 98.3 F 70 16 158/94 97 06/26/18 16:46 06/26/18 12:51 06/26/18 12:51 06/26/18 12:51 06/26/18 12:51 Results - Labs CBC & Chem 7: 06/26/18 09:57 06/26/18 09:57 Labs: Laboratory Last Values WBC 7.4 K/mm3 (4.5-11.0) 06/26/18 09:57 RBC 3.68 M/mm3 (3.65-5.03) 06/26/18 09:57 Hgb 11.0 gm/dl (11.8-15.2) L 06/26/18 09:57 Hct 34.1 % (35.5-45.6) L 06/26/18 09:57 MCV 93 fl (84-94) 06/26/18 09:57 MCH 30 pg (28-32) 06/26/18 09:57 MCHC 32 % (32-34) 06/26/18 09:57 RDW 13.9 % (13.2-15.2) 06/26/18 09:57 Plt Count 156 K/mm3 (140-440) 06/26/18 09:57 Lymph % (Auto) 18.3 % (13.4-35.0) 06/26/18 09:57 [place] % (Auto) 9.4 % (0.0-7.3) H 06/26/18 09:57 Eos % (Auto) 3.9 % (0.0-4.3) 06/26/18 09:57 Baso % (Auto) 0.5 % (0.0-1.8) 06/26/18 09:57 Lymph # 1.3 K/mm3 (1.2-5.4) 06/26/18 09:57 [place] # 0.7 K/mm3 (0.0-0.8) 06/26/18 09:57 Eos # 0.3 K/mm3 (0.0-0.4) 06/26/18 09:57 Baso # 0.0 K/mm3 (0.0-0.1) 06/26/18 09:57 Seg Neutrophils % 67.9 % (40.0-70.0) 06/26/18 09:57 Seg Neutrophils # 5.0 K/mm3 (1.8-7.7) 06/26/18 09:57 PT 15.6 Sec. (12.2-14.9) H 06/26/18 07:46 INR 1.20 (0.87-1.13) H 06/26/18 07:46 APTT 143.8 Sec. (24.2-36.6) H* 06/25/18 05:33 Heparin Anti-Xa Level 0.45 U.I./ml (0.3-0.7) 06/26/18 07:46 Sodium 150 mmol/L (137-145) H 06/26/18 09:57 Potassium 3.5 mmol/L (3.6-5.0) L 06/26/18 09:57 Chloride 109.7 mmol/L (98-107) H 06/26/18 09:57 Carbon Dioxide 23 mmol/L (22-30) 06/26/18 09:57 Anion Gap 21 mmol/L 06/26/18 09:57 BUN 11 mg/dL (9-20) 06/26/18 09:57 Creatinine 0.9 mg/dL (0.8-1.5) 06/26/18 09:57 Estimated GFR > 60 ml/min 06/26/18 09:57 BUN/Creatinine Ratio 12 % 06/26/18 09:57 Glucose 91 mg/dL (75-100) 06/26/18 09:57 Calcium 8.7 mg/dL (8.4-10.2) 06/26/18 09:57 Magnesium 2.40 mg/dL (1.7-2.3) H 06/25/18 03:58 Total Bilirubin 0.60 mg/dL (0.1-1.2) 06/26/18 09:57 AST 21 units/L (5-40) 06/26/18 09:57 ALT 14 units/L (7-56) 06/26/18 09:57 Alkaline Phosphatase 66 units/L (35-129) 06/26/18 09:57 Total Creatine Kinase 227 units/L (55-170) H 06/25/18 21:32 CK-MB (CK-2) 1.6 ng/mL (0.0-4.0) 06/25/18 21:32 CK-MB (CK-2) Rel Index 0.7 (0-4) 06/25/18 21:32 Troponin T < 0.010 ng/mL (0.00-0.029) 06/25/18 21:32 NT-Pro-B Natriuret Pep 22.34 pg/mL (0-900) 06/25/18 02:10 Total Protein 7.0 g/dL (6.3-8.2) 06/26/18 09:57 Albumin 3.1 g/dL (3.9-5) L 06/26/18 09:57 Albumin/Globulin Ratio 0.8 % 06/26/18 09:57 Lipase 56 units/L (13-60) 06/24/18 21:29 Urine Color [place] (Yellow) 06/24/18 23:36 Urine Turbidity Slightly-cloudy (Clear) 06/24/18 23:36 Urine pH 5.0 (5.0-7.0) 06/24/18 23:36 Ur Specific [place] 1.030 (1.003-1.030) 06/24/18 23:36 Urine Protein 100 mg/dl mg/dL (Negative) 06/24/18 23:36 Urine Glucose (UA) Neg mg/dL (Negative) 06/24/18 23:36 Urine Ketones 80 mg/dL (Negative) 06/24/18 23:36 Urine Blood Neg (Negative) 06/24/18 23:36 Urine Nitrite Neg (Negative) 06/24/18 23:36 Urine Bilirubin Neg (Negative) 06/24/18 23:36 Urine Urobilinogen 2.0 mg/dL (<2.0) 06/24/18 23:36 Ur Leukocyte Esterase Sm (Negative) 06/24/18 23:36 Urine WBC (Auto) 23.0 /HPF (0.0-6.0) H 06/24/18 23:36 Urine RBC (Auto) 4.0 /HPF (0.0-6.0) 06/24/18 23:36 U Epithel Cells (Auto) 3.0 /HPF (0-13.0) 06/24/18 23:36 Urine Mucus 3+ /HPF 06/24/18 23:36 Nutrition/Malnutrition Assess - Dietary Evaluation Nutrition/Malnutrition Findings: Nutrition Notes Start: 06/25/18 13:57 Freq: Status: Active Protocol: Document 06/25/18 13:57 RM (Rec: 06/25/18 14:01 RM [id number]) Nutrition Notes Need for Assessment generated from: Education Initial or Follow up Assessment Current Diagnosis Hypertension Stroke Other Pertinent Diagnosis UTI, Bilat PE Subjective/Other Information Pt screened for Coumadin/Vit K diet education. Reviewed Coumadin/Vit K diet education. Gave handout. #1 Nutrition Diagnosis Food and nutrition-related knowledge deficit Etiology lack of prior education As Evidenced by Signs and Symptoms no prior knowledge of need for food and nutrition recommendations Nutrition Intervention Teaching Recipient Patient Learning Readiness Good Teaching Methods Discussion Handout Response to Teaching Verbalize understanding Education Handouts Provided Vitamin K and Medications Barriers to Learning No Barriers RD phone number provided Yes Patient aware of follow up options Yes Goal #1 Adhere to diet Revisit per MD consult or patient Sign Off request:
[2018-06-26] MEDS: ZOFRAN IV PRN (21:00)
[2018-06-26] MEDS: HEPARIN/ 0.45% NACL-25,000 UNIT/500 ML 25,000 UNIT/500 ML BAG IV SCH (23:35)
[2018-06-27 04:45] LABS: Hematocrit 33.2 % (35.5-45.6); Hemoglobin 10.9 gm/dl (11.8-15.2)
[2018-06-27 04:53] LABS: INR 1.21 (0.87-1.13)
[2018-06-27] MEDS: LACTATED RINGERS 1,000 ML IV SCH ×3 (05:53→23:32)
[2018-06-27] MEDS: ZESTRIL PO SCH ×2 (10:30→22:19)
[2018-06-27] MEDS: HCTZ PO SCH (10:30)
[2018-06-27] MEDS: COREG PO SCH (10:30)
[2018-06-27 11:38] LABS: Basophils % (Auto) 0.7 % (0.0-1.8); Eosinophils # (Auto) 0.2 K/mm3 (0.0-0.4); Eosinophils % (Auto) 3.7 % (0.0-4.3); Hemoglobin 11.2 gm/dl (11.8-15.2); Lymphocytes # (Auto) 1.2 K/mm3 (1.2-5.4); Lymphocytes % (Auto) 19.7 % (13.4-35.0); Mean Corpuscular HGB Conc 33 % (32-34); Mean Corpuscular Volume 92 fl (84-94); Monocytes # (Auto) 0.6 K/mm3 (0.0-0.8); Monocytes % (Auto) 9.3 % (0.0-7.3); Platelet Count 163 K/mm3 (140-440); Red Blood Count 3.71 M/mm3 (3.65-5.03)
[2018-06-27 12:01] LABS: Alanine Aminotransferase 19 units/L (7-56); Albumin 3.5 g/dL (3.9-5); BUN/Creatinine Ratio 9; Blood Urea Nitrogen 8 mg/dL (9-20); Hemolysis Index 25
[2018-06-27] MEDS: ROCEPHIN/NS 1 GM/50 ML 1 GM/50 ML BAG IV SCH (12:08)
--- NOTE | 2018-06-27 16:29 | Progress Note ---
Assessment and Plan Assessment and plan: 53-year-old male with medical history significant for status post gastric sleeve surgery was admitted yesterday as a management of bilateral PE after he was presented for shortness of breath. Bilateral PE - CTA is positive for PE -Patient was on heparin drip and now transitioned to an increase Status post gastric sleeve surgery - Evaluated by bariatric surgery Disposition - Pending clearance from bariatric surgery or discharge History Interval history: Patient was seen and evaluated this morning. Patient didn't have any complaints. Hospitalist Physical - Physical exam Narrative exam: Not in cardiopulmonary distress. The patient is obese. Vital signs as documented. Head exam is unremarkable. No scleral icterus . Neck is without jugular venous distension, thyromegaly, or carotid bruits. Lungs are clear to auscultation. Cardiac exam reveals regular rate and Rhythm. First and second heart sounds normal. No murmurs, rubs or gallops. Abdominal exam reveals normal bowel sounds, no masses, no organomegaly and no aortic enlargement. Extremities are nonedematous and both femoral and pedal pulses are normal. 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 No focal weakness. - Constitutional Vitals: Temp Pulse Resp BP Pulse Ox 98.3 F 75 16 156/81 97 06/27/18 16:00 06/27/18 16:00 06/27/18 16:00 06/27/18 16:00 06/27/18 16:00 Results - Labs CBC & Chem 7: 06/27/18 11:16 06/27/18 11:16 Labs: Laboratory Last Values WBC 6.2 K/mm3 (4.5-11.0) 06/27/18 11:16 RBC 3.71 M/mm3 (3.65-5.03) 06/27/18 11:16 Hgb 11.2 gm/dl (11.8-15.2) L 06/27/18 11:16 Hct 34.0 % (35.5-45.6) L 06/27/18 11:16 MCV 92 fl (84-94) 06/27/18 11:16 MCH 30 pg (28-32) 06/27/18 11:16 MCHC 33 % (32-34) 06/27/18 11:16 RDW 14.0 % (13.2-15.2) 06/27/18 11:16 Plt Count 163 K/mm3 (140-440) 06/27/18 11:16 Lymph % (Auto) 19.7 % (13.4-35.0) 06/27/18 11:16 [place] % (Auto) 9.3 % (0.0-7.3) H 06/27/18 11:16 Eos % (Auto) 3.7 % (0.0-4.3) 06/27/18 11:16 Baso % (Auto) 0.7 % (0.0-1.8) 06/27/18 11:16 Lymph # 1.2 K/mm3 (1.2-5.4) 06/27/18 11:16 [place] # 0.6 K/mm3 (0.0-0.8) 06/27/18 11:16 Eos # 0.2 K/mm3 (0.0-0.4) 06/27/18 11:16 Baso # 0.0 K/mm3 (0.0-0.1) 06/27/18 11:16 Seg Neutrophils % 66.6 % (40.0-70.0) 06/27/18 11:16 Seg Neutrophils # 4.1 K/mm3 (1.8-7.7) 06/27/18 11:16 PT 15.7 Sec. (12.2-14.9) H 06/27/18 04:26 INR 1.21 (0.87-1.13) H 06/27/18 04:26 APTT 143.8 Sec. (24.2-36.6) H* 06/25/18 05:33 Heparin Anti-Xa Level 0.48 U.I./ml (0.3-0.7) 06/27/18 04:26 Sodium 146 mmol/L (137-145) H 06/27/18 11:16 Potassium 3.1 mmol/L (3.6-5.0) L 06/27/18 11:16 Chloride 104.0 mmol/L (98-107) 06/27/18 11:16 Carbon Dioxide 25 mmol/L (22-30) 06/27/18 11:16 Anion Gap 20 mmol/L 06/27/18 11:16 BUN 8 mg/dL (9-20) L 06/27/18 11:16 Creatinine 0.9 mg/dL (0.8-1.5) 06/27/18 11:16 Estimated GFR > 60 ml/min 06/27/18 11:16 BUN/Creatinine Ratio 9 % 06/27/18 11:16 Glucose 80 mg/dL (75-100) 06/27/18 11:16 Calcium 9.0 mg/dL (8.4-10.2) 06/27/18 11:16 Magnesium 2.40 mg/dL (1.7-2.3) H 06/25/18 03:58 Total Bilirubin 0.70 mg/dL (0.1-1.2) 06/27/18 11:16 AST 33 units/L (5-40) 06/27/18 11:16 ALT 19 units/L (7-56) 06/27/18 11:16 Alkaline Phosphatase 67 units/L (35-129) 06/27/18 11:16 Total Creatine Kinase 227 units/L (55-170) H 06/25/18 21:32 CK-MB (CK-2) 1.6 ng/mL (0.0-4.0) 06/25/18 21:32 CK-MB (CK-2) Rel Index 0.7 (0-4) 06/25/18 21:32 Troponin T < 0.010 ng/mL (0.00-0.029) 06/25/18 21:32 NT-Pro-B Natriuret Pep 22.34 pg/mL (0-900) 06/25/18 02:10 Total Protein 7.3 g/dL (6.3-8.2) 06/27/18 11:16 Albumin 3.5 g/dL (3.9-5) L 06/27/18 11:16 Albumin/Globulin Ratio 0.9 % 06/27/18 11:16 Lipase 56 units/L (13-60) 06/24/18 21:29 Urine Color [place] (Yellow) 06/24/18 23:36 Urine Turbidity Slightly-cloudy (Clear) 06/24/18 23:36 Urine pH 5.0 (5.0-7.0) 06/24/18 23:36 Ur Specific [place] 1.030 (1.003-1.030) 06/24/18 23:36 Urine Protein 100 mg/dl mg/dL (Negative) 06/24/18 23:36 Urine Glucose (UA) Neg mg/dL (Negative) 06/24/18 23:36 Urine Ketones 80 mg/dL (Negative) 06/24/18 23:36 Urine Blood Neg (Negative) 06/24/18 23:36 Urine Nitrite Neg (Negative) 06/24/18 23:36 Urine Bilirubin Neg (Negative) 06/24/18 23:36 Urine Urobilinogen 2.0 mg/dL (<2.0) 06/24/18 23:36 Ur Leukocyte Esterase Sm (Negative) 06/24/18 23:36 Urine WBC (Auto) 23.0 /HPF (0.0-6.0) H 06/24/18 23:36 Urine RBC (Auto) 4.0 /HPF (0.0-6.0) 06/24/18 23:36 U Epithel Cells (Auto) 3.0 /HPF (0-13.0) 06/24/18 23:36 Urine Mucus 3+ /HPF 06/24/18 23:36 Nutrition/Malnutrition Assess - Dietary Evaluation Nutrition/Malnutrition Findings: Nutrition Notes Start: 06/25/18 13:57 Freq: Status: Active Protocol: Document 06/25/18 13:57 RM (Rec: 06/25/18 14:01 RM [id number]) Nutrition Notes Need for Assessment generated from: Education Initial or Follow up Assessment Current Diagnosis Hypertension Stroke Other Pertinent Diagnosis UTI, Bilat PE Subjective/Other Information Pt screened for Coumadin/Vit K diet education. Reviewed Coumadin/Vit K diet education. Gave handout. #1 Nutrition Diagnosis Food and nutrition-related knowledge deficit Etiology lack of prior education As Evidenced by Signs and Symptoms no prior knowledge of need for food and nutrition recommendations Nutrition Intervention Teaching Recipient Patient Learning Readiness Good Teaching Methods Discussion Handout Response to Teaching Verbalize understanding Education Handouts Provided Vitamin K and Medications Barriers to Learning No Barriers RD phone number provided Yes Patient aware of follow up options Yes Goal #1 Adhere to diet Revisit per MD consult or patient Sign Off request:
[2018-06-27] MEDS: ZOFRAN IV PRN (16:47)
[2018-06-27] MEDS: ELIQUIS PO SCH ×2 (16:47→22:19)
--- NOTE | 2018-06-27 19:56 | Progress Note ---
Assessment and Plan Will check results of CT, however at this point since he is tolerating liquids, if there is no obstruction on CT, we can manage his surgical issues on an outpatient basis. Await medicine to achieve goal INR on anticoagulants and then can probably be discharged. Subjective Patient Reports: Positive: no new complaints, feels better, tolerating liquids well Narrative: Unable still to tolerate foods of substance. Objective Vital Signs - 12hr 06/27/18 06/27/18 06/27/18 08:00 08:07 08:43 Temperature 97.3 F L Pulse Rate 79 Respiratory 16 12 Rate Blood Pressure 132/62 O2 Sat by Pulse 99 95 98 Oximetry 06/27/18 06/27/18 06/27/18 09:01 10:00 10:25 Temperature Pulse Rate 76 78 86 Respiratory 16 13 Rate Blood Pressure 149/75 149/75 O2 Sat by Pulse Oximetry 06/27/18 06/27/18 06/27/18 10:30 11:01 12:00 Temperature Pulse Rate 79 82 Respiratory 12 17 Rate Blood Pressure 151/75 149/75 O2 Sat by Pulse 98 98 Oximetry 06/27/18 06/27/18 06/27/18 12:01 12:09 13:00 Temperature 98.5 F Pulse Rate 75 67 Respiratory 12 14 Rate Blood Pressure 149/75 140/78 O2 Sat by Pulse 96 93 Oximetry 06/27/18 06/27/18 06/27/18 14:01 15:00 16:00 Temperature 98.3 F Pulse Rate 72 81 75 Respiratory 16 19 20 Rate Blood Pressure 148/83 156/77 156/81 O2 Sat by Pulse 88 99 95 Oximetry - General physical appearance no distress, no pain - Abdomen soft, bowel sounds normal - Labs 06/27/18 11:16 06/27/18 11:16 Diabetes panel 06/27/18 Range/Units 11:16 Sodium 146 H (137-145) mmol/L Potassium 3.1 L (3.6-5.0) mmol/L Chloride 104.0 (98-107) mmol/L Carbon Dioxide 25 (22-30) mmol/L BUN 8 L (9-20) mg/dL Creatinine 0.9 (0.8-1.5) mg/dL Glucose 80 (75-100) mg/dL Calcium 9.0 (8.4-10.2) mg/dL AST 33 (5-40) units/L ALT 19 (7-56) units/L Alkaline Phosphatase 67 (35-129) units/L Total Protein 7.3 (6.3-8.2) g/dL Albumin 3.5 L (3.9-5) g/dL Calcium panel 06/27/18 Range/Units 11:16 Calcium 9.0 (8.4-10.2) mg/dL Albumin 3.5 L (3.9-5) g/dL Pituitary panel 06/27/18 Range/Units 11:16 Sodium 146 H (137-145) mmol/L Potassium 3.1 L (3.6-5.0) mmol/L Chloride 104.0 (98-107) mmol/L Carbon Dioxide 25 (22-30) mmol/L BUN 8 L (9-20) mg/dL Creatinine 0.9 (0.8-1.5) mg/dL Glucose 80 (75-100) mg/dL Calcium 9.0 (8.4-10.2) mg/dL Adrenal panel 06/27/18 Range/Units 11:16 Sodium 146 H (137-145) mmol/L Potassium 3.1 L (3.6-5.0) mmol/L Chloride 104.0 (98-107) mmol/L Carbon Dioxide 25 (22-30) mmol/L BUN 8 L (9-20) mg/dL Creatinine 0.9 (0.8-1.5) mg/dL Glucose 80 (75-100) mg/dL Calcium 9.0 (8.4-10.2) mg/dL Total Bilirubin 0.70 (0.1-1.2) mg/dL AST 33 (5-40) units/L ALT 19 (7-56) units/L Alkaline Phosphatase 67 (35-129) units/L Total Protein 7.3 (6.3-8.2) g/dL Albumin 3.5 L (3.9-5) g/dL
[2018-06-27] MEDS: REGLAN IV PRN (21:54)
[2018-06-28 06:36] LABS: INR 1.48 (0.87-1.13)
[2018-06-28] MEDS: ZOFRAN IV PRN ×2 (08:40→13:21)
[2018-06-28] MEDS: LACTATED RINGERS 1,000 ML IV SCH (08:40)
[2018-06-28] MEDS: HCTZ PO SCH (09:30)
[2018-06-28] MEDS: COREG PO SCH (09:30)
[2018-06-28] MEDS: ZESTRIL PO SCH (09:31)
[2018-06-28] MEDS: ELIQUIS PO SCH (10:10)
[2018-06-28] MEDS: REGLAN IV PRN (10:16)
--- NOTE | 2018-06-28 11:10 | Discharge Summary ---
Providers - Providers Date of Admission: 06/25/18 04:36 Attending physician: ALICIA MARQUEZ MD 06/25/18 04:14 Consult to Physician [CONS] Routine Comment: Dr. Randolph spoke with Dr. Gonzalez @ [phone] Consulting Provider: MAGDI GONZALEZ Physician Instructions: Reason For Exam: Abdominal pain, Nausea and vomiting. s/p surgery. 06/28/18 10:20 Physical Therapy Evaluation and Treat [CONS] Routine Comment: Reason For Exam: Needs to walk today Primary care physician: NIGHT MONITOR Hospitalization Reason for admission: Bilateral PE, history of bariatric surgery Condition: Stable Pertinent studies: CT abdomen and pelvis - No acute findings Hospital course: 53-year-old male with medical history significant for status post gastric sleeve surgery was admitted for the management of bilateral PE after he was presented for shortness of breath. Patent was admitted and treated with heparin drip and later transitioned to PO eliquis. Patient's SOB is getting better. Patient had nausea and vomiting and Dr Gonzalez saw the patient and CT abdomen and pelvis was done and no abnormality was identified. Nausea and vomiting subsided. Cleared for discharge by bariatric surgery and will follow him as an O/P. Patient was given a prescription for eliquis and reglan. Disposition: DC-01 TO HOME OR SELFCARE Time spent for discharge: 32 minutes - Discharge Diagnoses (1) Intractable nausea and vomiting Status: Acute Qualifiers: Vomiting type: unspecified Qualified Code(s): R11.2 - Nausea with vomiting, unspecified (2) Pulmonary embolism Status: Acute Qualifiers: Pulmonary embolism type: unspecified Chronicity: acute Acute cor pulmonale presence: without acute cor pulmonale Qualified Code(s): I26.99 - Other pulmonary embolism without acute cor pulmonale Core Measure Documentation - Palliative Care Palliative Care/ Comfort Measures: Not Applicable - Core Measures Any of the following diagnoses?: none - VTE Discharge Requirements Deep Vein Thrombosis/Pulmonary Embolism Present on Admission: Yes Has pt received <5 days of overlap therapy or INR<2.0: Yes Anticoagulant overlap therapy prescribed at discharge: No Contraindication No Overlap Therapy order at DC: Not Indicated Exam - Physical Exam Narrative exam: Not in cardiopulmonary distress. The patient is obese. Vital signs as documented. Head exam is unremarkable. No scleral icterus . Neck is without jugular venous distension, thyromegaly, or carotid bruits. Lungs are clear to auscultation. Cardiac exam reveals regular rate and Rhythm. First and second heart sounds normal. No murmurs, rubs or gallops. Abdominal exam reveals normal bowel sounds, no masses, no organomegaly and no aortic enlargement. Extremities are nonedematous and both femoral and pedal pulses are normal. 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 No focal weakness. - Constitutional Vitals: Temp Pulse Resp BP Pulse Ox 98.2 F 84 16 144/82 95 06/28/18 08:00 06/28/18 09:31 06/28/18 04:00 06/28/18 09:31 06/28/18 04:00 Plan Activity: no restrictions Weight Bearing Status: Full Weight Bearing Diet: low fat Follow up with: PRIMARY CARE, [Primary Care Provider] - 3-5 Days Forms: Warfarin Discharge Instruction Prescriptions: Apixaban [Eliquis] 5 mg PO Q12HR #74 tablet Metoclopramide [Reglan] 10 mg PO TID PRN #30 tab PRN Reason: Nausea
[2018-06-28] MEDS ORDERED: K-DUR PO ONE (12:00)
--- NOTE | 2018-06-28 15:17 | Progress Note ---
Assessment and Plan Assessment and plan: 53-year-old male with medical history significant for status post gastric sleeve surgery was admitted yesterday as a management of bilateral PE after he was presented for shortness of breath. Bilateral PE - CTA is positive for PE -Patient was on heparin drip and now transitioned to an increase Status post gastric sleeve surgery - Evaluated by bariatric surgery Hypokalemia - will supplement Disposition - patient is stable for discharge - he has a prescription for eliquis and reglan but patient appealed the discharge. - Patient Problems (1) Intractable nausea and vomiting Current Visit: Yes Status: Acute Qualifiers: Vomiting type: unspecified Qualified Code(s): R11.2 - Nausea with vomiting, unspecified (2) Pulmonary embolism Current Visit: Yes Status: Acute Qualifiers: Pulmonary embolism type: unspecified Chronicity: acute Acute cor pulmonale presence: without acute cor pulmonale Qualified Code(s): I26.99 - Other pulmonary embolism without acute cor pulmonale History Interval history: Patient was seen and evaluated this morning. Patient was discharged earlier and didn't mention any concerns with the discharge but later he doesn't want to go home. Hospitalist Physical - Physical exam Narrative exam: Not in cardiopulmonary distress. The patient is obese. Vital signs as documented. Head exam is unremarkable. No scleral icterus . Neck is without jugular venous distension, thyromegaly, or carotid bruits. Lungs are clear to auscultation. Cardiac exam reveals regular rate and Rhythm. First and second heart sounds normal. No murmurs, rubs or gallops. Abdominal exam reveals normal bowel sounds, no masses, no organomegaly and no aortic enlargement. Extremities are nonedematous and both femoral and pedal pulses are normal. [employer]: Alert and oriented 3. No focal weakness. - Constitutional Vitals: Temp Pulse Resp BP Pulse Ox 98.3 F 72 19 144/78 95 06/28/18 11:38 06/28/18 11:00 06/28/18 11:00 06/28/18 11:00 06/28/18 11:00 Results - Labs CBC & Chem 7: 06/27/18 11:16 06/27/18 11:16 Labs: Laboratory Last Values WBC 6.2 K/mm3 (4.5-11.0) 06/27/18 11:16 RBC 3.71 M/mm3 (3.65-5.03) 06/27/18 11:16 Hgb 11.2 gm/dl (11.8-15.2) L 06/27/18 11:16 Hct 34.0 % (35.5-45.6) L 06/27/18 11:16 MCV 92 fl (84-94) 06/27/18 11:16 MCH 30 pg (28-32) 06/27/18 11:16 MCHC 33 % (32-34) 06/27/18 11:16 RDW 14.0 % (13.2-15.2) 06/27/18 11:16 Plt Count 163 K/mm3 (140-440) 06/27/18 11:16 Lymph % (Auto) 19.7 % (13.4-35.0) 06/27/18 11:16 [place] % (Auto) 9.3 % (0.0-7.3) H 06/27/18 11:16 Eos % (Auto) 3.7 % (0.0-4.3) 06/27/18 11:16 Baso % (Auto) 0.7 % (0.0-1.8) 06/27/18 11:16 Lymph # 1.2 K/mm3 (1.2-5.4) 06/27/18 11:16 [place] # 0.6 K/mm3 (0.0-0.8) 06/27/18 11:16 Eos # 0.2 K/mm3 (0.0-0.4) 06/27/18 11:16 Baso # 0.0 K/mm3 (0.0-0.1) 06/27/18 11:16 Seg Neutrophils % 66.6 % (40.0-70.0) 06/27/18 11:16 Seg Neutrophils # 4.1 K/mm3 (1.8-7.7) 06/27/18 11:16 PT 18.3 Sec. (12.2-14.9) H 06/28/18 05:54 INR 1.48 (0.87-1.13) H 06/28/18 05:54 APTT 143.8 Sec. (24.2-36.6) H* 06/25/18 05:33 Heparin Anti-Xa Level 0.48 U.I./ml (0.3-0.7) 06/27/18 04:26 Sodium 146 mmol/L (137-145) H 06/27/18 11:16 Potassium 3.1 mmol/L (3.6-5.0) L 06/27/18 11:16 Chloride 104.0 mmol/L (98-107) 06/27/18 11:16 Carbon Dioxide 25 mmol/L (22-30) 06/27/18 11:16 Anion Gap 20 mmol/L 06/27/18 11:16 BUN 8 mg/dL (9-20) L 06/27/18 11:16 Creatinine 0.9 mg/dL (0.8-1.5) 06/27/18 11:16 Estimated GFR > 60 ml/min 06/27/18 11:16 BUN/Creatinine Ratio 9 % 06/27/18 11:16 Glucose 80 mg/dL (75-100) 06/27/18 11:16 Calcium 9.0 mg/dL (8.4-10.2) 06/27/18 11:16 Magnesium 2.40 mg/dL (1.7-2.3) H 06/25/18 03:58 Total Bilirubin 0.70 mg/dL (0.1-1.2) 06/27/18 11:16 AST 33 units/L (5-40) 06/27/18 11:16 ALT 19 units/L (7-56) 06/27/18 11:16 Alkaline Phosphatase 67 units/L (35-129) 06/27/18 11:16 Total Creatine Kinase 227 units/L (55-170) H 06/25/18 21:32 CK-MB (CK-2) 1.6 ng/mL (0.0-4.0) 06/25/18 21:32 CK-MB (CK-2) Rel Index 0.7 (0-4) 06/25/18 21:32 Troponin T < 0.010 ng/mL (0.00-0.029) 06/25/18 21:32 NT-Pro-B Natriuret Pep 22.34 pg/mL (0-900) 06/25/18 02:10 Total Protein 7.3 g/dL (6.3-8.2) 06/27/18 11:16 Albumin 3.5 g/dL (3.9-5) L 06/27/18 11:16 Albumin/Globulin Ratio 0.9 % 06/27/18 11:16 Lipase 56 units/L (13-60) 06/24/18 21:29 Urine Color [place] (Yellow) 06/24/18 23:36 Urine Turbidity Slightly-cloudy (Clear) 06/24/18 23:36 Urine pH 5.0 (5.0-7.0) 06/24/18 23:36 Ur Specific [place] 1.030 (1.003-1.030) 06/24/18 23:36 Urine Protein 100 mg/dl mg/dL (Negative) 06/24/18 23:36 Urine Glucose (UA) Neg mg/dL (Negative) 06/24/18 23:36 Urine Ketones 80 mg/dL (Negative) 06/24/18 23:36 Urine Blood Neg (Negative) 06/24/18 23:36 Urine Nitrite Neg (Negative) 06/24/18 23:36 Urine Bilirubin Neg (Negative) 06/24/18 23:36 Urine Urobilinogen 2.0 mg/dL (<2.0) 06/24/18 23:36 Ur Leukocyte Esterase Sm (Negative) 06/24/18 23:36 Urine WBC (Auto) 23.0 /HPF (0.0-6.0) H 06/24/18 23:36 Urine RBC (Auto) 4.0 /HPF (0.0-6.0) 06/24/18 23:36 U Epithel Cells (Auto) 3.0 /HPF (0-13.0) 06/24/18 23:36 Urine Mucus 3+ /HPF 06/24/18 23:36 Nutrition/Malnutrition Assess - Dietary Evaluation Nutrition/Malnutrition Findings: Nutrition Notes Start: 06/25/18 13:57 Freq: Status: Active Protocol: Document 06/25/18 13:57 RM (Rec: 06/25/18 14:01 [id number]) Nutrition Notes Need for Assessment generated from: Education Initial or Follow up Assessment Current Diagnosis Hypertension Stroke Other Pertinent Diagnosis UTI, Bilat PE Subjective/Other Information Pt screened for Coumadin/Vit K diet education. Reviewed Coumadin/Vit K diet education. Gave handout. #1 Nutrition Diagnosis Food and nutrition-related knowledge deficit Etiology lack of prior education As Evidenced by Signs and Symptoms no prior knowledge of need for food and nutrition recommendations Nutrition Intervention Teaching Recipient Patient Learning Readiness Good Teaching Methods Discussion Handout Response to Teaching Verbalize understanding Education Handouts Provided Vitamin K and Medications Barriers to Learning No Barriers RD phone number provided Yes Patient aware of follow up options Yes Goal #1 Adhere to diet Revisit per MD consult or patient Sign Off request:
[2018-06-28 15:25] VITALS: BP 148/75
[2018-06-28] MEDS: ROCEPHIN/NS 1 GM/50 ML 1 GM/50 ML BAG IV SCH (15:38)
[2018-06-28] MEDS ORDERED: POTASSIUM CHLORIDE FEEDTUBE ONE (16:00)
--- NOTE | 2018-07-02 16:11 | Query- Abnormal Electrolytes ---
Parris Ryan____Elida Date:__07/02/2018 It Disaster Recovery Manager/CDS:__Milady/Mono Phone#:___[phone] Exercise your independent professional judgment when responding to this query. Questions asked do not imply a particular answer is desired or expected. We greatly appreciate your clarification on this issue. Clinical Documentation States: 53-year-old male as admitted for the management of bilateral PE after he was presented for shortness of breath. - Discharge Diagnoses (1) Intractable nausea and vomiting Status: Acute Clinical Findings Show: Na 06/24 150 06/26 150 06/27 146 Can you please clarify whether you mean? [ ] Hyponatremia [ ] Hypokalemia [ ] Hypocalcemia [ ] Hypomagnesemia [ x] Hypernatremia [ ] Hyperkalemia [ ] Hypercalcemia [ ] Hypermagnesemia [ ] Sodium deficiency [ ] Potassium deficiency [ ] Hypochloremia [ ] Sodium excess [ ] Potassium excess [ ] Hyperchloremia [ ] Sodium overload [ ] Potassium overload [ ] Hypophosphatemia [ ] Hyperphosphatemia Acidosis; [ ] Respiratory [ ] Metabolic Alkalosis; [ ] Respiratory [ ] Metabolic [ ] Other: [ ] Comment/Explanation: Present on Admission: [ x] Yes (Y) [ ] Clinically undeterminable (W) [ ]No(N) Please also document response in your Progress Notes and/or Discharge Summary and indicate if the condition was present on admission. LUL
[2018-07-04] MEDS ORDERED: ELIQUIS PO SCH (10:00)
== END 2018-06-28 16:55 | disposition home or self-care (01) | DRG 176 ==
LOC: ED 20:56 → IMCU 06-25 04:36
PROVIDERS: ADMIT Internal Medicine; ATTEND Internal Medicine
DX: I26.99 Other pulmonary embolism without acute cor pulmonale (principal); N39.0 Urinary tract infection, site not specified; E87.0 Hyperosmolality and hypernatremia; R13.10 Dysphagia, unspecified; I10 Essential (primary) hypertension; E66.01 Morbid (severe) obesity due to excess calories; E87.6 Hypokalemia; Z98.84 Bariatric surgery status; Z86.73 Personal history of transient ischemic attack (TIA), and cerebral infarction without residual deficits; Z79.82 Long term (current) use of aspirin; Z79.899 Other long term (current) drug therapy
CPT/HCPCS: 36415; 71275; 74174; 74177; 80048; 80053; 81001; 82550; 82553; 83690; 83735; 83880; 84484; 85014; 85018; 85025; 85049; 85520; 85610; 85730; 93005; 93010; 94760; 96361; 96374; 96375; 99291; G0378; J0696; J1644; J2270; J2405; J2765; J7030; J7120; Q9967